=== PATIENT | female | born 1985 | race Caucasian/White ===

== ENCOUNTER 2020-10-18 15:01 | Emergency (ER) | payer SELFPAY ==
[~2020-10-18] VITALS: Ht 165.1 cm; Wt 49.9 kg
--- NOTE | 2020-10-18 15:25 | NUR ---
at bedside for assessment
[2020-10-18] MEDS ORDERED: AMOX500C2 PO (16:22)
[2020-10-18] MEDS ORDERED: AMOXicillin 250 MG CAPSULE PO ONE (16:30)
[2020-10-18] MEDS ORDERED: ACETAMINOPHEN ES 500 MG TABLET PO ONE (16:30)
[2020-10-18] MEDS ORDERED: AMOXICILLIN-CLAVUL 500-125MG TABLET ONE (16:30)
[2020-10-18] MEDS ORDERED: ACETAMINOPHEN ES 500 MG TABLET ONE (16:30)
[2020-10-18] MEDS ORDERED: AMOXicillin 250 MG CAPSULE ONE (16:32)
--- NOTE | 2020-10-18 17:07 | NUR ---
Patient discharged to home in stable condition. No signs of acute distress noted.Written and verbal after care instructions given. Patient verbalizes understanding of instructions. Stressed follow up or return to ER for worsening s/s.
[2020-10-18 17:10] VITALS: BP 107/64
== END 2020-10-18 17:00 | disposition home or self-care (01) ==
LOC: ER 15:05
DX: J02.0 Streptococcal pharyngitis (principal); B95.0 Streptococcus, group A, as the cause of diseases classified elsewhere
CPT/HCPCS: 86403; A4663; A9150